=== PATIENT | male | born 1960 | race Hispanic/Latino ===

== ENCOUNTER 2020-08-14 12:09 | Inpatient (IN) | payer MEDICARE ==
[~2020-08-14] VITALS: Ht 167.6 cm; Wt 60.6 kg
[2020-08-14 12:41] LABS: BASOPHILS % (AUTO) 0.9 % (0.0-5.0); EOSINOPHILS % (AUTO) 1.5 % (0.0-8.0); HEMATOCRIT 37.5 % (42-54); LYMPHOCYTES % (AUTO) 23.8 % (21.0-51.0); MEAN CORPUSCULAR HEMOGLOBIN 30.4 pg (27.0-33.0); MEAN CORPUSCULAR HGB CONC 33.6 g/dL (32.0-36.0); MEAN CORPUSCULAR VOLUME 90.6 fL (79-99); MONOCYTES % (AUTO) 9.9 % (3.0-13.0); NEUTROPHILS % (AUTO) 63.7 % (40.0-77.0); PLATELET COUNT (AUTO) 143 K/uL (130-400); RED BLOOD CELL COUNT(AUTO) 4.14 MIL/uL (4.50-6.20); RED CELL DISTRIBUTION WIDTH 14.6 % (11.0-15.5); WHITE BLOOD COUNT (AUTO) 5.9 K/uL (4.8-10.8)
[2020-08-14 13:14] LABS: CREATININE 0.9 mg/dL (0.5-1.5); POTASSIUM 4.1 mmol/L (3.5-5.1)
[2020-08-14 13:16] LABS: BILIRUBIN,TOTAL 0.2 mg/dL (0.2-1.0); MAGNESIUM 1.6 mg/dL (1.80-2.40); PHOSPHORUS 3.3 mg/dL (2.5-4.9); TOTAL PROTEIN, SERUM 6.8 g/dL (6.0-8.3)
[2020-08-14 13:17] LABS: ALBUMIN 3.5 g/dL (3.5-5.0)
[2020-08-14] MEDS ORDERED: MAGNESIUM 2GM PREMIX 50ML 50 ML IV ONE (15:07)
[2020-08-14] MEDS ORDERED: PHENYTOIN SODIUM 250MG (50 MG/ML) VIAL ONE (15:07)
[2020-08-14] MEDS ORDERED: 0.9% NACL 250ML 250 ML IV ONE (15:11)
[2020-08-14] MEDS ORDERED: HALOPERIDOL INJ 5 MG/ML VIAL ONE (15:56)
[2020-08-14] MEDS ORDERED: LORAZEPAM 2 MG/ML 1 ML VIAL ONE (15:56)
[2020-08-14] MEDS ORDERED: DiphenhydrAMINE HCL 50 MG/ML VIAL ONE (15:56)
[2020-08-14 17:59] LABS: APPEARANCE,URINE Clear (CLEAR); BILIRUBIN,URINE Negative (NEGATIVE); COLOR,URINE Yellow (YELLOW); GLUCOSE, URINE (UA) Negative (NEGATIVE); KETONES,URINE Negative (NEGATIVE); LEUKOCYTE ESTERASE ,URINE Negative (NEGATIVE); NITRATE,URINE Negative (NEGATIVE); OCCULT BLOOD,URINE Negative (NEGATIVE); PH,URINE 7.5 (5.0-8.0); PROTEIN,URINE Negative (NEGATIVE); UROBILINOGEN,URINE 0.2 mg/dL (0.2-1.0)
[2020-08-14 18:08] LABS: AMPHET/METH SCREEN,URINE NEGATIVE (NEGATIVE); BARBITURATE SCREEN, URINE NEGATIVE (NEGATIVE); BENZODIAZEPINES SCREEN,URINE NEGATIVE (NEGATIVE); CANNABINOID SCREEN,URINE NEGATIVE (NEGATIVE); COCAINE SCREEN,URINE NEGATIVE (NEGATIVE); OPIATE SCREEN,URINE NEGATIVE (NEGATIVE); PHENCYCLIDINE SCREEN,URINE NEGATIVE (NEGATIVE)
[2020-08-14] MEDS ORDERED: MAG/ALUM/SIMETH 30 ML UDCUP PO PRN (19:30)
[2020-08-14] MEDS ORDERED: LACTULOSE 20 GM/30 ML UDCUP PO PRN (19:30)
[2020-08-14] MEDS ORDERED: ACETAMINOPHEN 325 MG TAB PO PRN ×2 (19:30)
[2020-08-14] MEDS ORDERED: ONDANSETRON 4MG INJ IV PRN (19:30)
[2020-08-14] MEDS: PHENYTOIN SODIUM 100 MG ERCAP PO SCH (21:00)
[2020-08-14] MEDS: FAMOTIDINE 20MG TAB PO SCH (21:00)
[2020-08-14] MEDS ORDERED: PHENYTOIN SODIUM 100 MG ERCAP PO ONE (22:11)
[2020-08-14] MEDS ORDERED: FAMOTIDINE 20MG TAB ONE (22:12)
[2020-08-15 06:49] LABS: CREATININE 0.8 mg/dL (0.5-1.5); PHENYTOIN (DILANTIN) 17.6 mcg/mL (10.0-20.0); POTASSIUM 4.3 mmol/L (3.5-5.1)
[2020-08-15] MEDS ORDERED: PHENYTOIN SODIUM 100 MG ERCAP PO ONE (07:40)
[2020-08-15] MEDS ORDERED: FAMOTIDINE 20MG TAB ONE (07:41)
[2020-08-15] MEDS: PHENYTOIN SODIUM 100 MG ERCAP PO SCH ×3 (09:00→20:34)
[2020-08-15] MEDS: FAMOTIDINE 20MG TAB PO SCH ×2 (09:00→20:34)
[2020-08-15] MEDS ORDERED: LORAZEPAM 1 MG TABLET PO SCH (17:55)
[2020-08-15 19:09] VITALS: BP 95/63
[2020-08-15 20:55] VITALS: BP 106/67
[2020-08-16] VITALS (8 sets, daily range): BP systolic 92–149; BP diastolic 49–72
[2020-08-16] MEDS: FAMOTIDINE 20MG TAB PO SCH ×2 (08:18→20:35)
[2020-08-16] MEDS: PHENYTOIN SODIUM 100 MG ERCAP PO SCH ×3 (08:18→20:34)
[2020-08-16] MEDS ORDERED: ZOLP5TAB8 PO (09:24)
[2020-08-16] MEDS ORDERED: VALP250S5 PO (09:24)
[2020-08-16] MEDS ORDERED: PHENY100 PO (09:24)
[2020-08-16] MEDS ORDERED: TRAZ-253 PO (09:27)
[2020-08-16] MEDS ORDERED: OLAN10TA73 PO (09:27)
[2020-08-16] MEDS ORDERED: AMLO2.5T4 PO (09:27)
[2020-08-16] MEDS ORDERED: PHARMACY COMMUNICATION MISC SCH (09:30)
[2020-08-16] MEDS: OLANZAPINE 5 MG TAB PO SCH (16:56)
[2020-08-16] MEDS ORDERED: OLANZAPINE 5 MG TAB ONE (16:56)
[2020-08-16] MEDS ORDERED: TRAZODONE HCL 50 MG TAB ONE (19:14)
[2020-08-16] MEDS ORDERED: VALPROATE SOD 250 MG/5 ML (PO) ONE (19:14)
[2020-08-16] MEDS ORDERED: ZOLPIDEM TARTRATE 5 MG TAB ONE (19:15)
[2020-08-16] MEDS: VALPROATE SOD 250 MG/5 ML (PO) PO SCH (20:34)
[2020-08-16] MEDS ORDERED: TRAZODONE HCL 50 MG TAB PO SCH (21:00)
[2020-08-16] MEDS ORDERED: ZOLPIDEM TARTRATE 5 MG TAB PO SCH (21:00)
[2020-08-16] MEDS ORDERED: HALOPERIDOL INJ 5 MG/ML VIAL IM SCH (21:15)
[2020-08-16] MEDS ORDERED: HALOPERIDOL INJ 5 MG/ML VIAL ONE (21:17)
[2020-08-17] MEDS ORDERED: MAGNESIUM 2GM PREMIX 50ML 50 ML IV PRN (02:45)
[2020-08-17 04:01] VITALS: BP 102/51
[2020-08-17] MEDS: PHENYTOIN SODIUM 100 MG ERCAP PO SCH ×2 (07:52→14:18)
[2020-08-17] MEDS: VALPROATE SOD 250 MG/5 ML (PO) PO SCH (07:52)
[2020-08-17] MEDS: OLANZAPINE 5 MG TAB PO SCH (07:53)
[2020-08-17] MEDS: FAMOTIDINE 20MG TAB PO SCH (07:53)
[2020-08-17] MEDS ORDERED: AMLODIPINE 2.5 MG TAB PO SCH (09:00)
[2020-08-17 09:40] VITALS: BP 98/56
== END 2020-08-17 14:58 | disposition home or self-care (01) | DRG 101 ==
LOC: EDH 12:09 → OBSVTOIN 18:55 → EDHIP 18:55 → 4AH 08-15 13:59
PROVIDERS: ADMIT Family Medicine; ATTEND Family Medicine
DX: G40.909 Epilepsy, unspecified, not intractable, without status epilepticus (principal); E83.42 Hypomagnesemia; I10 Essential (primary) hypertension; F20.9 Schizophrenia, unspecified; Z79.899 Other long term (current) drug therapy
CPT/HCPCS: 36415; 70450; 72170; 73070; 80048; 80053; 80185; 80305; 81003; 82550; 83735; 83880; 84100; 84484; 85025; 93005; G0378; J1165; J1200; J1630; J2060; J3475; J7050

== ENCOUNTER 2021-05-29 10:22 | Emergency (ER) | payer MEDICARE ==
[~2021-05-29] VITALS: Ht 167.6 cm; Wt 49.9 kg
[~2021-05-29 10:22] MED LIST: AMLO2.5T4 PO; OLAN10TA73 PO; PHENY100 PO; TRAZ-253 PO; VALP250S5 PO; ZOLP5TAB8 PO
[2021-05-29] MEDS ORDERED: LORAZEPAM 2 MG/ML 1 ML VIAL ONE (10:43)
[2021-05-29 10:46] LABS: BASOPHILS % (AUTO) 0.2 % (0.0-5.0); EOSINOPHILS % (AUTO) 0.1 % (0.0-8.0); HEMATOCRIT 39.3 % (42-54); LYMPHOCYTES % (AUTO) 8.1 % (21.0-51.0); MEAN CORPUSCULAR HEMOGLOBIN 30.4 pg (27.0-33.0); MEAN CORPUSCULAR HGB CONC 34.1 g/dL (32.0-36.0); MEAN CORPUSCULAR VOLUME 89.1 fL (79-99); MONOCYTES % (AUTO) 8.3 % (3.0-13.0); NEUTROPHILS % (AUTO) 82.9 % (40.0-77.0); PLATELET COUNT (AUTO) 197 K/uL (130-400); RED BLOOD CELL COUNT(AUTO) 4.41 MIL/uL (4.50-6.20); RED CELL DISTRIBUTION WIDTH 13.7 % (11.0-15.5); WHITE BLOOD COUNT (AUTO) 8.5 K/uL (4.8-10.8)
[2021-05-29] MEDS ORDERED: LEVETIRACETAM 500 MG/5 ML SD VIAL IV ONE (10:46)
[2021-05-29] MEDS ORDERED: 0.9% NACL 250ML 250 ML ONE (10:47)
[2021-05-29 10:56] LABS: CREATININE 0.8 mg/dL (0.5-1.5)
[2021-05-29 11:01] LABS: ALBUMIN 4.1 g/dL (3.5-5.0); BILIRUBIN,TOTAL 0.4 mg/dL (0.2-1.0); TOTAL PROTEIN, SERUM 7.4 g/dL (6.0-8.3)
[2021-05-29] MEDS ORDERED: 0.9%NACL 1000ML 1,000 ML IV ONE (11:25)
[2021-05-29] MEDS ORDERED: FOSPHENYTOIN SODIUM 100 MG/2 ML VIAL IV SCH (14:30)
[2021-05-29] MEDS ORDERED: FOSPHENYTOIN SODIUM IJ SCH (14:30)
[2021-05-29] MEDS ORDERED: [UNRECOGNIZED DRUG - OTHER] IJ SCH (14:30)
[2021-05-29] MEDS ORDERED: PHENYTOIN SODIUM 100 MG ERCAP PO SCH (16:30)
[2021-05-29] MEDS ORDERED: PHEN100C23 PO (17:41)
[2021-05-29 18:45] VITALS: BP 100/65
== END 2021-05-29 21:19 | disposition home or self-care (01) ==
LOC: EDH 10:22
DX: S00.83XA Contusion of other part of head, initial encounter (principal); G40.909 Epilepsy, unspecified, not intractable, without status epilepticus; R25.1 Tremor, unspecified; F20.9 Schizophrenia, unspecified; Z79.899 Other long term (current) drug therapy; W06.XXXA Fall from bed, initial encounter; Y93.89 Activity, other specified; Y92.098 Other place in other non-institutional residence as the place of occurrence of the external cause; Y99.8 Other external cause status
CPT/HCPCS: 36415; 70450; 70486; 71045; 72125; 80053; 80185; 84484; 85025; 93005 ×2; 96365; 96366 ×2; 96367; 96375; 99285; J1953; J2060; J7030; J7050; Q2009